=== PATIENT | male | born 1970 | race Caucasian/White ===

== ENCOUNTER 2024-02-07 06:20 | Day surgery (SDC) | payer OTHER, SELFPAY ==
[2024-01-30 09:08] LABS: Hematocrit 39.6 % (39.0-52.0); Hemoglobin 13.5 g/dL (13.0-18.0); Mean Corp Hgb Conc. 34.1 g/dL (33.0-37.0); Mean Corpuscular Hgb 29.7 pg (27.0-31.0); Mean Corpuscular Volume 87.2 fL (80.0-94.0); Mean Platelet Volume 9.9 fL (7.4-10.4); Platelet Count 230 10^3/uL (130-400); Red Blood Cell Count 4.54 10^6/uL (4.70-6.10); Red Cell Dist. Width 12.5 % (11.5-14.5); White Blood Cell Count 4.9 10^3/uL (4.8-10.8)
[2024-01-30 10:15] LABS: Blood Urea Nitrogen 17 mg/dl (9-20); Calcium 9.1 mg/dl (8.4-10.2); Carbon Dioxide 24 mmol/L (22-30); Chloride 106 mmol/L (98-107); Glucose 87 mg/dl (70-99); Potassium 4.6 mmol/L (3.5-5.1); Sodium 141 mmol/L (135-145); eGFR > 60.00
[2024-01-30 12:54] VITALS: BMI 28.3
[2024-02-07] VITALS (7 sets, daily range): BP systolic 128–155; BP diastolic 80–106; BMI 28.3
[2024-02-07] MEDS: TYLENOL 1000 MG PO (08:48)
[2024-02-07] MEDS: NORMOSOL-R/PLASMALYTE-A 1000 IV (08:56)
[2024-02-07] MEDS: DILAUDID 0.25 MG IV ×2 (11:39→11:50)
[2024-02-07] MEDS: ROXICODONE 5 MG PO (12:24)
== END 2024-02-07 12:53 | disposition home or self-care (01) ==
LOC: SDS 06:20
PROVIDERS: ATTENDING PHYSICIAN Surgery; FAMILY PHYSICIAN Family Medicine
DX: K40.90 Unilateral inguinal hernia, without obstruction or gangrene, not specified as recurrent (principal)
CPT/HCPCS: 49650; 80048; 85027; 93005; C1781